=== PATIENT | male | born 1940 | race Caucasian/White ===

== ENCOUNTER → 2021-06-02 | Outpatient (CLI) | payer MEDICARE ==
[~2021-06-02] MED LIST: CALC600T61 PO; LISI20TA20 PO; POTA1TAB14 PO; PRAV40TA2 PO; SM G150T PO; SM M250T2 PO; TURM500C PO; VITA-183 PO; VITA-243 PO; ZINC1TAB2 PO; omega red PO
== END ==
LOC: EDBD → M LABSMTC 09:54
PROVIDERS: ATTEND Anesthesiology
DX: Z01.818 Encounter for other preprocedural examination (principal); Z11.52 Encounter for screening for COVID-19

== ENCOUNTER 2021-06-07 12:09 | Day surgery (SDC) | payer MEDICARE ==
[~2021-06-07] VITALS: Ht 172.7 cm; Wt 90.6 kg
[~2021-06-07 12:09] MED LIST changes: +CYCLOPENTOLATE 1% OPHTH SOLN 2 ML BTL OD SCH; +FLURBIPROFEN 0.03% OPHTH SOLN 2.5 ML OD SCH; +LIDOCAINE 1% SDV 5ML VIAL As Ordered ONE; +LR 1,000 ML IV SCH; +PHENYLEPHRINE 2.5% OPHTH SOL 2ML OD SCH; +TETRACAINE 0.5% OPHTH SOLN 4ML OD SCH
[2021-06-07] MEDS ORDERED: MIDAZOLAM INJ 2MG/2ML VIAL (J2250 PER 1MG) As Ordered ONE (15:47)
[2021-06-07 16:30] VITALS: BP 154/90
--- NOTE | 2021-06-08 07:10 | RO ---
OPERATIVE NOTE DATE OF OPERATION: 06/07/2021 PREPOPERATIVE DIAGNOSIS: Mature cataract, right eye. POSTOPERATIVE DIAGNOSIS: Mature cataract, right eye. PROCEDURE: Phaco-emulsification with posterior chamber intraocular lens implant, right eye. SURGEON: Francis Marc Jr., TEMPORARY HELP AGENCY REFERRAL CLERK: ANESTHESIA: IV sedation. DESCRIPTION OF PROCEDURE: The patient was brought into the operating room and given monitored Anesthesia by the Department of Anesthesia by IV route. The patient was then given a standard prep by using Betadine solution. One drop of Tetracaine was placed in the eye prior to the prep. The patient was then draped in the usual manner. Lid speculum was placed in the eye. The eye was grasped with 0.12 forceps for better exposure of the cornea. A 15 degree stab blade was made at 10 o'clock position. 0.3 cc of 1% Lidocaine in a syringe attached to a cannula was inserted into the anterior chamber through the port site. Viscoelastic was inserted into the anterior chamber through the port site. A 2.75 mm clear cornea keratome blade was then used to make a clear corneal wound at 9 o'clock position. A cystitome was used to start a continuous tear capsulorhexis, which was completed with Utrata forceps. BSS in a syringe attached to a cannula was then used to hydrodissect the lens nucleus. Phacoemulsification was then used to remove the lens nucleus using a [id number] type technique. After this was completed, irrigation and aspiration apparatus was brought into the anterior chamber and the remaining cortical material was removed. Provisc was inserted into the capsular bag. Once the lens was removed, it was noted that the patient had the edge of the pupillary rim on the temporal side of the pupil caught up in the phaco tip causing some distortion of the pupillary rim. The patient had a very dense cataract and very small pupil. While taking the cataract out, the eye moved to a point where it caused the phaco tip to suck on a piece of the iris and doing so, it distorted the pupillary rim. We tried to continue to remove the cataract. As we removed the cataract with a now flaccid pupillary rim, it became very difficult to remove the lens nucleus as well as the cortical material. We did get through this, trying to keep the iris filaments out of the phaco tip best as possible. Other than the distortion of the pupil, the procedure did well. It was once again very dense lens. Then it was decided to use an [employer] one-piece foldable lens. It was then dialed into place using a Matty Pusher. Once the lens was in place, irrigation and aspiration was reinserted into the anterior chamber and the remaining Provisc was removed. BSS was inserted through the port site and then the port site was hydrated. The wound was checked. There was no need for sutures at this time. The patient then had the lid speculum removed. The shield was placed over the eye and the patient was brought back to Ambulatory Surgery in stable condition. The patient tolerated the procedure well. Phacoemulsification time was 42.52 seconds. Besivance drops were placed in the eye in Ambulatory Surgery.
== END 2021-06-07 16:42 | disposition home or self-care (01) ==
LOC: M SDC 12:09 → EDUNIT# 12:30 → M SDC 16:42
PROVIDERS: ATTEND Ophthalmology
DX: H25.11 Age-related nuclear cataract, right eye (principal); I10 Essential (primary) hypertension; E78.5 Hyperlipidemia, unspecified; Z79.899 Other long term (current) drug therapy
CPT/HCPCS: 66984; J2250; V2632